=== PATIENT | male | born 1945 | race Caucasian/White ===

== ENCOUNTER → 2016-12-27 | Outpatient (CLI) | payer MEDICARE, OTHER ==
[~2016-12-27] MED LIST: ACET325T14 PO; ASPI-496 PO; ASPI-515 PO; ATOR40TA78 PO; BUPR-86 PO; CARV12.52 PO; CILO100T17 PO; CLOP75TA PO; ENAL20TA68 PO; ERGO500017 PO; FINA5TAB4 PO; GABA300C10 PO; HYDR-3138 PO; OXYC1TAB9 PO; PANT20TA3 PO; PARO10TA3 PO; POLY17PO5 PO; SENN1TAB7 PO; iron PO
[2016-12-27 12:44] LABS: HEMATOCRIT 29.5 % (39.2-51.8); HEMOGLOBIN 9.4 g/dL (13.7-18.0); WHITE BLOOD COUNT 5.4 x10^3/uL (3.4-10)
[2016-12-27 12:58] LABS: BLOOD UREA NITROGEN 50 mg/dL (7-18)
[2016-12-27 13:08] LABS: ASPARTATE AMINO TRANSFERASE 9 U/L (15-37); FERRITIN 801.7 ng/mL (26-388); TOTAL IRON BINDING CAPACITY 177 mcg/dL (250-450); TRANSFERRIN 143 mg/dL (200-360)
[2016-12-28 10:07] LABS: CREATININE URINE 57.2 mg/dL (Not Estab.)
== END | disposition home or self-care (01) ==
LOC: CFH 10:49
PROVIDERS: ATTEND Internal Medicine Cardiovascular Disease
DX: I12.9 Hypertensive chronic kidney disease with stage 1 through stage 4 chronic kidney disease, or unspecified chronic kidney disease (principal); D63.1 Anemia in chronic kidney disease; N18.4 Chronic kidney disease, stage 4 (severe); N17.9 Acute kidney failure, unspecified; E78.00 Pure hypercholesterolemia, unspecified; E03.9 Hypothyroidism, unspecified
CPT/HCPCS: 36415; 80053; 80061; 82043; 82570; 82728; 83540; 83550; 84439; 84443; 84466; 85025

== ENCOUNTER → 2017-01-30 | Outpatient (CLI) | payer MEDICARE, OTHER ==
[~2017-01-30] MED LIST changes: -HYDR-3138 PO; +HYDR-3237 PO
[2017-01-30 12:56] LABS: HEMATOCRIT 32.1 % (39.2-51.8); HEMOGLOBIN 10.5 g/dL (13.7-18.0); WHITE BLOOD COUNT 5.5 x10^3/uL (3.4-10)
== END | disposition home or self-care (01) ==
LOC: CFH 10:31
PROVIDERS: ATTEND Family Medicine
DX: D50.8 Other iron deficiency anemias (principal)
CPT/HCPCS: 36415; 85025

== ENCOUNTER → 2017-04-05 | Outpatient (CLI) | payer MEDICARE, OTHER ==
[~2017-04-05] MED LIST changes: +AMLO5TAB4 PO; +CHOL500015 PO; +FLUC100T4 PO; +LACT1CAP24 PO; +LEVO25TA2 PO; +LISI-170 PO; +MAGN400O7 PO; +SIMV10TA PO; +VANC1VIA3 PO; +ZOLP10TA PO
[2017-04-05 13:12] LABS: HEMATOCRIT 31.5 % (39.2-51.8); HEMOGLOBIN 10.3 g/dL (13.7-18.0); WHITE BLOOD COUNT 6.1 x10^3/uL (3.4-10)
[2017-04-05 13:36] LABS: ASPARTATE AMINO TRANSFERASE 14 U/L (15-37); BLOOD UREA NITROGEN 30 mg/dL (7-18)
[2017-04-08 12:23] LABS: C. DIFF TOXIN A & B Negative
[2017-04-08 12:24] LABS: 027-NAP1-BI Presumpt Negative (Negative)
== END | disposition home or self-care (01) ==
LOC: LAB 09:51
PROVIDERS: ATTEND Family Medicine
DX: A04.72 Enterocolitis due to Clostridium difficile, not specified as recurrent (principal); D63.8 Anemia in other chronic diseases classified elsewhere; N18.4 Chronic kidney disease, stage 4 (severe)
CPT/HCPCS: 36415; 80053; 85025; 87493

== ENCOUNTER → 2017-06-05 | Outpatient (CLI) | payer MEDICARE, OTHER ==
[2017-06-05 12:46] LABS: BASOPHILS # (AUTO) 0.02 x10^3/uL (0-0.1); BASOPHILS % (AUTO) 0 % (0-1); EOSINOPHILS # (AUTO) 0.21 x10^3/uL (0-0.4); EOSINOPHILS % (AUTO) 4 % (1-7); LYMPHOCYTES # (AUTO) 1.35 x10^3/uL (1-3.4); LYMPHOCYTES % (AUTO) 23 % (22-44); MD NO; MEAN CORPUSCULAR HGB CONC 32.6 g/dL (33.2-36.2); MEAN CORPUSCULAR VOLUME 91.8 fL (81-97); MEAN PLATELET VOLUME 9.5 fL (7.4-10.4); MONOCYTES # (AUTO) 0.57 x10^3/uL (0.2-0.8); MONOCYTES % (AUTO) 10 % (2-9); NEUTROPHILS # (AUTO) 3.75 x10^3/uL (1.8-6.8); NEUTROPHILS % (AUTO) 64 % (42-75); PLATELET COUNT 209 x10^3/uL (130-400); RED BLOOD COUNT 3.71 x10^6/uL (4.38-5.82); RED CELL DISTRIBUTION WIDTH 16.1 % (9.4-14.8)
[2017-06-05 12:48] LABS: CHLORIDE 112 mmol/L (98-107)
[2017-06-05 13:10] LABS: ALANINE AMINOTRANSFERASE 14 U/L (12-78); ALBUMIN 3.4 g/dL (3.4-5.0); ALKALINE PHOSPHATASE 121 U/L (45-117); ANION GAP 12 mmol/L (5-15); BILIRUBIN,TOTAL 0.5 mg/dL (0.2-1.0); CHOL/HDL RATIO 2.7; CHOLESTEROL, TOTAL 122 mg/dL (140-239); CREATININE 3.37 mg/dL (0.7-1.3); HDL CHOL % 38 % (26-37); HDL CHOLESTEROL (DIRECT) 46 mg/dL (40-60); LDL CHOLESTEROL,CALCULATED 57 mg/dL (54-169); LDL/HDL RATIO 1.2 (0.5-3.0); T4 (THYROXINE) 7.4 mcg/dL (4.5-12.1); TOTAL PROTEIN 8.2 g/dL (6.4-8.2); TRIGLYCERIDES 93 mg/dL (50-200); VLDL CHOLESTEROL 19 mg/dL (0-25)
== END | disposition home or self-care (01) ==
LOC: CFH 09:32
PROVIDERS: ATTEND Internal Medicine Cardiovascular Disease
DX: I12.9 Hypertensive chronic kidney disease with stage 1 through stage 4 chronic kidney disease, or unspecified chronic kidney disease (principal); E78.00 Pure hypercholesterolemia, unspecified; N18.9 Chronic kidney disease, unspecified; I25.2 Old myocardial infarction; I25.5 Ischemic cardiomyopathy
CPT/HCPCS: 36415; 80053; 80061; 84436; 84443; 84481; 85025

== ENCOUNTER → 2017-07-16 | Outpatient (CLI) | payer MEDICARE, OTHER ==
[2017-07-16 13:10] LABS: ALBUMIN 3.5 g/dL (3.4-5.0); ANION GAP 8 mmol/L (5-15); CALCIUM 8.9 mg/dL (8.5-10.1); CHLORIDE 116 mmol/L (98-107)
[2017-07-16 13:23] LABS: ALANINE AMINOTRANSFERASE 19 U/L (12-78); ALKALINE PHOSPHATASE 131 U/L (45-117); BILIRUBIN,TOTAL 0.4 mg/dL (0.2-1.0); CHOL/HDL RATIO 2.7; CHOLESTEROL, TOTAL 117 mg/dL (140-239); CREATININE 3.09 mg/dL (0.7-1.3); HDL CHOL % 37 % (26-37); HDL CHOLESTEROL (DIRECT) 43 mg/dL (40-60); LDL CHOLESTEROL,CALCULATED 49 mg/dL (54-169); LDL/HDL RATIO 1.1 (0.5-3.0); T4 (THYROXINE) 8.5 mcg/dL (4.5-12.1); TOTAL PROTEIN 8.5 g/dL (6.4-8.2); TRIGLYCERIDES 124 mg/dL (50-200); VLDL CHOLESTEROL 25 mg/dL (0-25)
== END | disposition home or self-care (01) ==
LOC: CFH 10:57
PROVIDERS: ATTEND Internal Medicine Cardiovascular Disease
DX: I12.9 Hypertensive chronic kidney disease with stage 1 through stage 4 chronic kidney disease, or unspecified chronic kidney disease (principal); N18.9 Chronic kidney disease, unspecified; I25.10 Atherosclerotic heart disease of native coronary artery without angina pectoris; I25.5 Ischemic cardiomyopathy; I47.2 Ventricular tachycardia; I25.2 Old myocardial infarction; N17.9 Acute kidney failure, unspecified
CPT/HCPCS: 36415; 80053; 80061; 84436; 84443; 84481

== ENCOUNTER → 2017-08-13 | Outpatient (CLI) | payer MEDICARE, OTHER ==
[~2017-08-13] MED LIST changes: +REGADENOSON 0.4 MG/5 ML SYRINGE ONE
== END | disposition home or self-care (01) ==
LOC: CFH 07:47
PROVIDERS: ATTEND Internal Medicine Cardiovascular Disease
DX: I21.09 ST elevation (STEMI) myocardial infarction involving other coronary artery of anterior wall (principal); I21.29 ST elevation (STEMI) myocardial infarction involving other sites; I10 Essential (primary) hypertension; I25.10 Atherosclerotic heart disease of native coronary artery without angina pectoris
CPT/HCPCS: 78452; 93017; A9502; J2785

== ENCOUNTER → 2017-10-18 | Outpatient (CLI) | payer MEDICARE, OTHER ==
[~2017-10-18] MED LIST changes: -REGADENOSON 0.4 MG/5 ML SYRINGE ONE
[2017-10-18 12:46] LABS: BASOPHILS # (AUTO) 0.02 x10^3/uL (0-0.1); BASOPHILS % (AUTO) 0 % (0-1); EOSINOPHILS # (AUTO) 0.21 x10^3/uL (0-0.4); EOSINOPHILS % (AUTO) 3 % (1-7); LYMPHOCYTES # (AUTO) 1.55 x10^3/uL (1-3.4); LYMPHOCYTES % (AUTO) 21 % (22-44); MD NO; MEAN CORPUSCULAR HEMOGLOBIN 30.4 pg (27.5-34.5); MEAN CORPUSCULAR HGB CONC 32.4 g/dL (33.2-36.2); MEAN CORPUSCULAR VOLUME 93.9 fL (81-97); MEAN PLATELET VOLUME 9.1 fL (7.4-10.4); MONOCYTES # (AUTO) 0.67 x10^3/uL (0.2-0.8); MONOCYTES % (AUTO) 9 % (2-9); NEUTROPHILS # (AUTO) 5.06 x10^3/uL (1.8-6.8); NEUTROPHILS % (AUTO) 67 % (42-75); PLATELET COUNT 236 x10^3/uL (130-400); RED BLOOD COUNT 3.66 x10^6/uL (4.38-5.82); RED CELL DISTRIBUTION WIDTH 14.6 % (9.4-14.8)
[2017-10-18 12:48] LABS: ALBUMIN 3.4 g/dL (3.4-5.0); ANION GAP 7 mmol/L (5-15); CALCIUM 8.1 mg/dL (8.5-10.1); CHLORIDE 109 mmol/L (98-107)
[2017-10-18 12:51] LABS: CULTURE INDICATED? YES; MICROSCOPIC INDICATED
[2017-10-18 13:00] LABS: ALANINE AMINOTRANSFERASE 14 U/L (12-78); ALKALINE PHOSPHATASE 166 U/L (45-117); BILIRUBIN,TOTAL 0.3 mg/dL (0.2-1.0); CHOL/HDL RATIO 2.7; CHOLESTEROL, TOTAL 107 mg/dL (140-239); CREATININE 3.11 mg/dL (0.7-1.3); HDL CHOL % 36 % (26-37); HDL CHOLESTEROL (DIRECT) 39 mg/dL (40-60); LDL CHOLESTEROL,CALCULATED 41 mg/dL (54-169); LDL/HDL RATIO 1.1 (0.5-3.0); TOTAL PROTEIN 7.8 g/dL (6.4-8.2); TRIGLYCERIDES 134 mg/dL (50-200); VLDL CHOLESTEROL 27 mg/dL (0-25)
== END | disposition home or self-care (01) ==
LOC: CFH 09:03
PROVIDERS: ATTEND Family Medicine
DX: D64.9 Anemia, unspecified (principal); I73.9 Peripheral vascular disease, unspecified; N18.9 Chronic kidney disease, unspecified; E03.9 Hypothyroidism, unspecified; E87.5 Hyperkalemia; R79.89 Other specified abnormal findings of blood chemistry; R82.99 Other abnormal findings in urine
CPT/HCPCS: 36415; 80053; 80061; 81001; 84443; 85025; 87077; 87086; 87106; 87186

== ENCOUNTER → 2017-11-04 | Outpatient (CLI) | payer MEDICARE, OTHER ==
[2017-11-04 12:42] LABS: BASOPHILS # (AUTO) 0.04 x10^3/uL (0-0.1); BASOPHILS % (AUTO) 1 % (0-1); EOSINOPHILS # (AUTO) 0.09 x10^3/uL (0-0.4); EOSINOPHILS % (AUTO) 1 % (1-7); LYMPHOCYTES # (AUTO) 1.52 x10^3/uL (1-3.4); LYMPHOCYTES % (AUTO) 22 % (22-44); MD NO; MEAN CORPUSCULAR HEMOGLOBIN 30.9 pg (27.5-34.5); MEAN CORPUSCULAR HGB CONC 32.6 g/dL (33.2-36.2); MEAN CORPUSCULAR VOLUME 94.7 fL (81-97); MONOCYTES # (AUTO) 0.63 x10^3/uL (0.2-0.8); MONOCYTES % (AUTO) 9 % (2-9); NEUTROPHILS # (AUTO) 4.64 x10^3/uL (1.8-6.8); NEUTROPHILS % (AUTO) 67 % (42-75); PLATELET COUNT 316 x10^3/uL (130-400); RED BLOOD COUNT 3.67 x10^6/uL (4.38-5.82); RED CELL DISTRIBUTION WIDTH 15.3 % (9.4-14.8)
== END ==
LOC: CFH 10:42
PROVIDERS: ATTEND Family Medicine
DX: D63.1 Anemia in chronic kidney disease (principal); N18.9 Chronic kidney disease, unspecified
CPT/HCPCS: 36415; 85025

== ENCOUNTER 2017-11-22 17:18 | Emergency (ER) | payer MEDICARE, OTHER ==
[~2017-11-22] VITALS: Ht 180.3 cm; Wt 64.9 kg
[~2017-11-22 17:18] MED LIST changes: +OXYC-432 PO; -OXYC1TAB9 PO
[2017-11-22 17:54] LABS: BASOPHILS # (AUTO) 0.02 x10^3/uL (0-0.1); BASOPHILS % (AUTO) 0 % (0-1); EOSINOPHILS # (AUTO) 0.26 x10^3/uL (0-0.4); EOSINOPHILS % (AUTO) 4 % (1-7); LYMPHOCYTES # (AUTO) 1.19 x10^3/uL (1-3.4); LYMPHOCYTES % (AUTO) 18 % (22-44); MD NO; MEAN CORPUSCULAR HEMOGLOBIN 31.6 pg (27.5-34.5); MEAN CORPUSCULAR HGB CONC 33.2 g/dL (33.2-36.2); MEAN CORPUSCULAR VOLUME 95.1 fL (81-97); MEAN PLATELET VOLUME 8.1 fL (7.4-10.4); MONOCYTES # (AUTO) 0.46 x10^3/uL (0.2-0.8); MONOCYTES % (AUTO) 7 % (2-9); NEUTROPHILS # (AUTO) 4.54 x10^3/uL (1.8-6.8); NEUTROPHILS % (AUTO) 70 % (42-75); PLATELET COUNT 207 x10^3/uL (130-400); RED BLOOD COUNT 2.98 x10^6/uL (4.38-5.82); RED CELL DISTRIBUTION WIDTH 15.7 % (9.4-14.8)
[2017-11-22 18:03] LABS: ALANINE AMINOTRANSFERASE 14 U/L (12-78); ALBUMIN 3.1 g/dL (3.4-5.0); ANION GAP 6 mmol/L (5-15); CALCIUM 8.4 mg/dL (8.5-10.1); CHLORIDE 112 mmol/L (98-107); CREATININE 2.91 mg/dL (0.7-1.3)
[2017-11-22 18:05] LABS: ALKALINE PHOSPHATASE 121 U/L (45-117); BILIRUBIN,TOTAL 0.3 mg/dL (0.2-1.0); TOTAL PROTEIN 7.3 g/dL (6.4-8.2)
[2017-11-22] MEDS ORDERED: SODIUM POLYSTYRENE SULFONATE ORAL SUSP PO ONE (18:30)
[2017-11-22] MEDS ORDERED: CLOP75TA52 PO (18:56)
[2017-11-22 19:54] VITALS: BP 165/72
== END 2017-11-22 19:56 | disposition home or self-care (01) ==
LOC: ED 18:20 → EDIP 18:23 → UNDOADMIN 18:23 → ED 19:56
DX: E87.5 Hyperkalemia (principal); Z87.891 Personal history of nicotine dependence; E11.21 Type 2 diabetes mellitus with diabetic nephropathy; Z99.2 Dependence on renal dialysis; Z95.1 Presence of aortocoronary bypass graft
CPT/HCPCS: 36415; 80053; 85025; 93005; 99285

== ENCOUNTER 2017-12-23 13:00 | Inpatient (IN) | payer MEDICARE, OTHER ==
[~2017-12-23] VITALS: Ht 180.3 cm; Wt 64.0 kg
[~2017-12-23 13:00] MED LIST changes: +CLOP75TA52 PO
[2017-12-30] MEDS ORDERED: DOCU-131 PO (11:13)
[2017-12-30] MEDS ORDERED: Iron PO (11:13)
[2017-12-30] MEDS ORDERED: HYDR-879 PO (11:13)
[2018-01-02] MEDS ORDERED: PAPAVERINE 30 MG/ML, 2ML ONE (08:55)
[2018-01-02] MEDS ORDERED: HEPARIN 1,000 UNITS/ML, 10ML ONE (08:55)
[2018-01-02] MEDS ORDERED: THROMBIN 20,000 UNIT VIAL TP ONE (08:55)
[2018-01-02] MEDS ORDERED: PROTAMINE SULFATE 10 MG/ML, 5ML ONE (08:55)
[2018-01-02] MEDS ORDERED: BUPIVACAINE/PF 0.5% ONE (08:56)
[2018-01-02] MEDS ORDERED: BACITRACIN 50,000 UNIT ONE (08:56)
[2018-01-02] MEDS ORDERED: EPINEPHRINE 1 MG/ML, 1ML ONE (08:56)
[2018-01-02 11:40] VITALS: BP 129/73
[2018-01-02] MEDS ORDERED: SODIUM CHLORIDE 0.9% 1,000 ML IV SCH (11:47)
[2018-01-02] MEDS ORDERED: FENTANYL PF 250 MCG/5ML ONE (13:25)
[2018-01-02] MEDS ORDERED: ROCURONIUM 10 MG/ML,10ML ONE (13:54)
[2018-01-02] MEDS ORDERED: PROPOFOL 10 MG/ML, 20ML ONE (13:54)
[2018-01-02] MEDS ORDERED: ONDANSETRON 2MG/ML, 2ML ONE (13:54)
[2018-01-02] MEDS ORDERED: CEFAZOLIN 1,000 MG ONE (13:54)
[2018-01-02] MEDS ORDERED: LABETALOL 5MG/ML, 20ML IV PRN (15:30)
[2018-01-02] MEDS ORDERED: DIPHENHYDRAMINE 50 MG/ML, 1ML IVPush PRN (15:30)
[2018-01-02] MEDS ORDERED: EPHEDRINE 50 MG/ML, 1ML IVPush PRN (15:30)
[2018-01-02] MEDS ORDERED: MIDAZOLAM 1 MG/ML, 2ML IV PRN (15:30)
[2018-01-02] MEDS ORDERED: OXYcodone 5 MG/5 ML ORAL.SOL UDC PO PRN (15:30)
[2018-01-02] MEDS ORDERED: PROMETHAZINE 12.5 MG SUPP PR PRN (15:30)
[2018-01-02] MEDS ORDERED: ACETAMINOPHEN 325 MG TABLET PO PRN (15:30)
[2018-01-02] MEDS ORDERED: PROMETHAZINE 25 MG/ML, 1ML IV PRN (15:30)
[2018-01-02] MEDS ORDERED: hydrALAzine 20 MG/ML, 1ML IV PRN (15:30)
[2018-01-02] MEDS ORDERED: ONDANSETRON ODT 8 MG PO PRN (15:30)
[2018-01-02] MEDS ORDERED: EPHEDRINE 50 MG/ML, 1ML IM PRN (15:30)
[2018-01-02] MEDS ORDERED: PROMETHAZINE 25 MG SUPP PR PRN (15:30)
[2018-01-02] MEDS ORDERED: FENTANYL PF 100 MCG/2ML ONE (15:50)
[2018-01-02] MEDS: FENTANYL PF 100 MCG/2ML IV PRN ×3 (16:00→16:20)
[2018-01-02] MEDS ORDERED: ACETAMINOPHEN 650 MG/20.3 ML UDC ONE (16:17)
[2018-01-02] MEDS ORDERED: OXYcodone 5 MG/5 ML ORAL.SOL UDC ONE (16:18)
[2018-01-02] MEDS ORDERED: morphine SULFATE 10 MG/ML, 1ML ONE (16:31)
[2018-01-02] MEDS: MORPHINE SULFATE 4 MG/ML, 1ML IVPush PRN ×4 (16:33→17:06)
[2018-01-02] MEDS ORDERED: MORPHINE SULFATE 4 MG/ML, 1ML ONE (17:04)
[2018-01-02] MEDS ORDERED: ZOLPIDEM 10MG TABLET PO PRN (18:30)
[2018-01-02] MEDS ORDERED: MORPHINE SULFATE 4 MG/ML, 1ML IV PRN (19:00)
[2018-01-02] MEDS: SODIUM CHLORIDE 0.9% 1,000 ML IV SCH (19:56)
[2018-01-02] MEDS ORDERED: PAROXETINE 20 MG TABLET ONE (20:45)
[2018-01-02] MEDS: HYDROcodone/APAP 5/325 TABLET PO PRN (20:47)
[2018-01-02 20:53] VITALS: BP 145/66
[2018-01-02] MEDS ORDERED: ATORVASTATIN 80 MG TABLET PO SCH (21:00)
[2018-01-02] MEDS ORDERED: PAROXETINE 10 MG TABLET PO SCH (21:00)
[2018-01-02] MEDS ORDERED: HYDROcodone/APAP 5/325 TABLET PO PRN (22:30)
[2018-01-02 23:41] VITALS: BP 151/73
[2018-01-03] VITALS: BP 151/73
[2018-01-03] MEDS: HYDROcodone/APAP 5/325 TABLET PO PRN ×2 (03:23→07:36)
[2018-01-03 04:01] VITALS: BP 151/71
[2018-01-03 05:47] LABS: BASOPHILS # (AUTO) 0.04 x10^3/uL (0-0.1); BASOPHILS % (AUTO) 0 % (0-1); EOSINOPHILS % (AUTO) 0 % (1-7); LYMPHOCYTES # (AUTO) 0.79 x10^3/uL (1-3.4); LYMPHOCYTES % (AUTO) 8 % (22-44); MD NO; MEAN CORPUSCULAR HGB CONC 33.3 g/dL (33.2-36.2); MEAN CORPUSCULAR VOLUME 96.1 fL (81-97); MEAN PLATELET VOLUME 8.7 fL (7.4-10.4); MONOCYTES # (AUTO) 0.51 x10^3/uL (0.2-0.8); MONOCYTES % (AUTO) 5 % (2-9); NEUTROPHILS # (AUTO) 9.23 x10^3/uL (1.8-6.8); NEUTROPHILS % (AUTO) 87 % (42-75); PLATELET COUNT 218 x10^3/uL (130-400); RED BLOOD COUNT 2.75 x10^6/uL (4.38-5.82); RED CELL DISTRIBUTION WIDTH 15.1 % (9.4-14.8)
[2018-01-03 05:53] LABS: ANION GAP 6 mmol/L (5-15); CALCIUM 7.8 mg/dL (8.5-10.1); CHLORIDE 116 mmol/L (98-107); CREATININE 2.62 mg/dL (0.7-1.3)
[2018-01-03] MEDS ORDERED: ASPIRIN 81 MG TABLET EC PO SCH (06:00)
[2018-01-03] MEDS ORDERED: LEVOTHYROXINE 75 MCG TABLET PO SCH (06:00)
[2018-01-03] MEDS ORDERED: CARVEDILOL 12.5 MG TABLET PO SCH (06:00)
[2018-01-03 06:02] VITALS: BP 153/74
[2018-01-03 06:47] VITALS: BP 156/78
[2018-01-03] MEDS ORDERED: GABAPENTIN 300 MG CAPSULE PO SCH (09:00)
[2018-01-03] MEDS ORDERED: CLOPIDOGREL 75 MG TABLET PO SCH (09:00)
[2018-01-03] MEDS ORDERED: FINASTERIDE 5 MG TABLET PO SCH (09:00)
[2018-01-03] MEDS ORDERED: DOCUSATE 100 MG CAPSULE PO SCH (09:00)
[2018-01-03] MEDS: SODIUM CHLORIDE 0.9% 1,000 ML IV SCH (09:42)
[2018-01-03 10:35] VITALS: BP 119/65
== END 2018-01-03 11:02 | disposition home or self-care (01) | DRG 253 ==
LOC: ORIP 01-02 10:45 → 4NOR 01-02 17:27 → DCLOUNGE 01-03 10:52
PROVIDERS: ADMIT Surgery Vascular Surgery; ATTEND Surgery Vascular Surgery
PROC: 04UL0KZ Supplement Left Femoral Artery with Nonautologous Tissue Substitute, Open Approach (ICD-10-PCS; 2018-01-02)
PROC: 047J0DZ Dilation of Left External Iliac Artery with Intraluminal Device, Open Approach (ICD-10-PCS; 2018-01-02)
PROC: 04CL0ZZ Extirpation of Matter from Left Femoral Artery, Open Approach (ICD-10-PCS; principal; 2018-01-02 13:30)
DX: I73.9 Peripheral vascular disease, unspecified (principal); K57.32 Diverticulitis of large intestine without perforation or abscess without bleeding; I25.10 Atherosclerotic heart disease of native coronary artery without angina pectoris; E78.5 Hyperlipidemia, unspecified; I70.90 Unspecified atherosclerosis
CPT/HCPCS: 36415; 37221; 37237; 80048; 85025; 86850; 86900; C1725; C1729; J0171; J0690; J1644; J2405; J2704; J2720; J3010; J3490; C1768; C1769; C1876; C1894; J2440; J7030

== ENCOUNTER → 2017-12-25 | Outpatient (CLI) | payer MEDICARE, OTHER ==
[~2017-12-25] MED LIST changes: +DOCU-131 PO; +HYDR-879 PO; +Iron PO
[2017-12-25 13:54] LABS: ALANINE AMINOTRANSFERASE 16 U/L (12-78); ALBUMIN 3.4 g/dL (3.4-5.0); ANION GAP 8 mmol/L (5-15); CALCIUM 8.8 mg/dL (8.5-10.1); CHLORIDE 115 mmol/L (98-107); CREATININE 3.01 mg/dL (0.7-1.3)
[2017-12-25 13:56] LABS: ALKALINE PHOSPHATASE 136 U/L (45-117); BILIRUBIN,TOTAL 0.4 mg/dL (0.2-1.0)
[2017-12-25 14:00] LABS: BASOPHILS # (AUTO) 0.01 x10^3/uL (0-0.1); BASOPHILS % (AUTO) 0 % (0-1); EOSINOPHILS # (AUTO) 0.15 x10^3/uL (0-0.4); EOSINOPHILS % (AUTO) 2 % (1-7); LYMPHOCYTES # (AUTO) 1.05 x10^3/uL (1-3.4); LYMPHOCYTES % (AUTO) 15 % (22-44); MD NO; MEAN CORPUSCULAR HGB CONC 33.1 g/dL (33.2-36.2); MEAN CORPUSCULAR VOLUME 96.7 fL (81-97); MEAN PLATELET VOLUME 8.1 fL (7.4-10.4); MONOCYTES # (AUTO) 0.49 x10^3/uL (0.2-0.8); MONOCYTES % (AUTO) 7 % (2-9); NEUTROPHILS # (AUTO) 5.44 x10^3/uL (1.8-6.8); NEUTROPHILS % (AUTO) 76 % (42-75); PLATELET COUNT 251 x10^3/uL (130-400); RED BLOOD COUNT 3.43 x10^6/uL (4.38-5.82); RED CELL DISTRIBUTION WIDTH 15.3 % (9.4-14.8)
== END | disposition home or self-care (01) ==
LOC: STAR 12:53
PROVIDERS: ATTEND Surgery Vascular Surgery
DX: Z01.818 Encounter for other preprocedural examination (principal)
CPT/HCPCS: 36415; 80053; 85025

== ENCOUNTER 2018-04-11 10:33 | Inpatient (IN) | payer MEDICARE, OTHER ==
[~2018-04-11] VITALS: Ht 180.3 cm; Wt 72.2 kg
[~2018-04-11 10:33] MED LIST changes: +HYDR-3622 PO; -HYDR-879 PO; -SENN1TAB7 PO; +SENN1TAB8 PO
[2018-04-11] MEDS ORDERED: NALOXONE 0.4 MG/ML, 1ML ONE (10:36)
[2018-04-11] MEDS ORDERED: NALOXONE 0.4 MG/ML, 1ML IVPush ONE ×2 (11:00→11:30)
[2018-04-11] MEDS ORDERED: SODIUM CHLORIDE 0.9% 1,000ML IVBOLUS ONE ×2 (11:00→12:00)
[2018-04-11 11:05] LABS: BASOPHILS # (AUTO) 0.02 x10^3/uL (0-0.1); BASOPHILS % (AUTO) 0 % (0-1); EOSINOPHILS % (AUTO) 0 % (1-7); LYMPHOCYTES # (AUTO) 0.56 x10^3/uL (1-3.4); LYMPHOCYTES % (AUTO) 4 % (22-44); MD NO; MEAN CORPUSCULAR HEMOGLOBIN 30.6 pg (27.5-34.5); MEAN CORPUSCULAR HGB CONC 32.7 g/dL (33.2-36.2); MEAN CORPUSCULAR VOLUME 93.5 fL (81-97); MEAN PLATELET VOLUME 8.1 fL (7.4-10.4); MONOCYTES # (AUTO) 0.49 x10^3/uL (0.2-0.8); MONOCYTES % (AUTO) 4 % (2-9); NEUTROPHILS # (AUTO) 12.45 x10^3/uL (1.8-6.8); NEUTROPHILS % (AUTO) 92 % (42-75); PLATELET COUNT 206 x10^3/uL (130-400); RED CELL DISTRIBUTION WIDTH 15.4 % (9.4-14.8)
[2018-04-11 11:07] LABS: O2 FLOW 14 L/min
[2018-04-11 11:15] LABS: INTERNATIONAL NORMALIZED RATIO 1.3 (0.93-1.1); PROTHROMBIN TIME 13.6 Seconds (9.6-11.5)
[2018-04-11] MEDS ORDERED: TIOT18CA INH (11:16)
[2018-04-11] MEDS ORDERED: POLY17PO5 PO (11:16)
[2018-04-11] MEDS ORDERED: HYDR-3341 PO (11:16)
[2018-04-11] MEDS ORDERED: CHOL100012 PO (11:16)
[2018-04-11] MEDS ORDERED: SODIUM BICARBONATE PO (11:16)
[2018-04-11] MEDS ORDERED: MAGN400O7 PO (11:16)
[2018-04-11] MEDS ORDERED: IRON PO (11:16)
[2018-04-11] MEDS ORDERED: OXYC-307 PO (11:16)
[2018-04-11] MEDS ORDERED: TAMS-11 PO (11:16)
[2018-04-11 11:19] LABS: ALANINE AMINOTRANSFERASE 89 U/L (12-78); ALBUMIN 2.3 g/dL (3.4-5.0); ANION GAP 6 mmol/L (5-15); CALCIUM 6.9 mg/dL (8.5-10.1); CHLORIDE 107 mmol/L (98-107)
[2018-04-11 11:23] LABS: ALKALINE PHOSPHATASE 117 U/L (45-117); BILIRUBIN,TOTAL 0.7 mg/dL (0.2-1.0); TOTAL PROTEIN 5.9 g/dL (6.4-8.2); TROPONIN I 0.099 ng/mL (0.000-0.045)
[2018-04-11] MEDS ORDERED: PIPERACILLIN/TAZO/PMX 3.375GM 50 ML ONE (11:38)
[2018-04-11] MEDS ORDERED: ALBUTEROL SULFATE 2.5 MG/3 ML ONE (11:44)
[2018-04-11] MEDS ORDERED: NALOXONE IV SCH ×2 (12:00→13:00)
[2018-04-11] MEDS ORDERED: DEXTROSE 50%, 50ML SYRINGE IVPush ONE (12:00)
[2018-04-11] MEDS ORDERED: INSULIN REGULAR 100 UNITS/ML, 3ML VIAL IVPush ONE (12:00)
[2018-04-11] MEDS ORDERED: VANCOMYCIN PER PHARMACY IV ONE (12:00)
[2018-04-11] MEDS ORDERED: SODIUM CHLORIDE 0.9% IV SCH ×2 (12:00→13:00)
[2018-04-11] MEDS ORDERED: ALBUTEROL SULFATE 2.5MG/0.5ML NPPB ONE (12:00)
[2018-04-11] MEDS ORDERED: PIPERACILLIN/TAZO/PMX 3.375GM 50 ML IV ONE (12:00)
[2018-04-11] MEDS ORDERED: SODIUM BICARB 8.4%, 50ML SYRINGE IVPush ONE ×2 (12:00→13:30)
[2018-04-11] MEDS ORDERED: PHARMACOKINETIC CONSULTATION MC ONE (12:30)
[2018-04-11] MEDS ORDERED: SODIUM CHLORIDE 0.9% 1,000 ML IV SCH (12:34)
[2018-04-11] MEDS ORDERED: LABETALOL 5MG/ML, 20ML IVPush PRN (13:00)
[2018-04-11] MEDS ORDERED: DOCUSATE 100 MG CAPSULE PO PRN (13:00)
[2018-04-11] MEDS ORDERED: POLYETHYLENE GLYCOL 17 GM PACKET PO PRN (13:00)
[2018-04-11] MEDS ORDERED: BISACODYL 10 MG SUPP PR PRN (13:00)
[2018-04-11] MEDS ORDERED: LIDODERM 5% PATCH TD PRN (13:00)
[2018-04-11] MEDS ORDERED: hydrALAzine 20 MG/ML, 1ML IVPush PRN (13:00)
[2018-04-11] MEDS ORDERED: VANCOMYCIN 1,200 MG in SODIUM CHLORIDE 0.9% 250 ML IV ONE (13:00)
[2018-04-11] MEDS ORDERED: ONDANSETRON 2MG/ML, 2ML IVPush PRN (13:00)
[2018-04-11] MEDS ORDERED: DEXTROSE 50%, 50ML SYRINGE ONE (13:08)
[2018-04-11] MEDS ORDERED: SODIUM BICARB 8.4%, 50ML SYRINGE ONE (13:08)
[2018-04-11] MEDS ORDERED: INSULIN REGULAR 100 UNITS/ML, 3ML VIAL ONE (13:09)
[2018-04-11] MEDS ORDERED: CALCIUM GLUCONATE 4.6 MEQ in SODIUM CHLORIDE 0.9% 50 ML IV ONE (13:30)
[2018-04-11] MEDS ORDERED: SODIUM POLYSTYRENE SULFONATE ORAL SUSP PO SCH (13:30)
[2018-04-11 13:53] LABS: ANION GAP 5 mmol/L (5-15); CALCIUM 6.6 mg/dL (8.5-10.1); CHLORIDE 108 mmol/L (98-107); CREATININE 3.72 mg/dL (0.7-1.3)
[2018-04-11 14:12] VITALS: BP 97/47
[2018-04-11] MEDS ORDERED: DARBEPOETIN 60 MCG/ML SQ SCH (15:00)
[2018-04-11] MEDS: AMPICILLIN/SULBACTAM 3 GM in SODIUM CHLORIDE 0.9% 100 ML IV SCH ×2 (15:10→19:00)
[2018-04-11] MEDS: PANTOPRAZOLE 40 MG IV IVPush SCH (15:10)
[2018-04-11] MEDS: HEPARIN 5,000 UNITS/ML, 1ML SQ SCH ×2 (15:10→20:12)
[2018-04-11] MEDS: ASPIRIN 81 MG TABLET CHEW PO SCH (15:36)
[2018-04-11] MEDS: CLOPIDOGREL 75 MG TABLET PO SCH (15:36)
[2018-04-11 18:17] LABS: MICROSCOPIC AUTO
[2018-04-11 18:18] LABS: CULTURE INDICATED? YES
[2018-04-11] MEDS: CARVEDILOL 12.5 MG TABLET PO SCH (20:13)
[2018-04-11 20:28] LABS: CALCIUM 7.1 mg/dL (8.5-10.1)
[2018-04-11 20:33] LABS: ANION GAP 6 mmol/L (5-15); CALCIUM 6.7 mg/dL (8.5-10.1); CHLORIDE 111 mmol/L (98-107); CREATININE 3.37 mg/dL (0.7-1.3)
[2018-04-11] MEDS ORDERED: HEPARIN 25,000 UNITS/500ML PMX 500 ML IV PRN ×2 (22:30→23:00)
[2018-04-11] MEDS: ACETAMINOPHEN 325 MG TABLET PO PRN (22:46)
[2018-04-11] MEDS: SODIUM CHLORIDE 0.9% 1,000 ML IV SCH (22:49)
[2018-04-11] MEDS ORDERED: HEPARIN 5,000 UNITS/ML, 1ML IV ONE (23:00)
[2018-04-12] MEDS: AMPICILLIN/SULBACTAM 3 GM in SODIUM CHLORIDE 0.9% 100 ML IV SCH ×4 (01:11→18:42)
[2018-04-12 02:16] LABS: BASOPHILS # (AUTO) 0.02 x10^3/uL (0-0.1); BASOPHILS % (AUTO) 0 % (0-1); EOSINOPHILS # (AUTO) 0.01 x10^3/uL (0-0.4); EOSINOPHILS % (AUTO) 0 % (1-7); LYMPHOCYTES # (AUTO) 0.94 x10^3/uL (1-3.4); LYMPHOCYTES % (AUTO) 6 % (22-44); MD NO; MEAN CORPUSCULAR HGB CONC 33.1 g/dL (33.2-36.2); MEAN CORPUSCULAR VOLUME 93.8 fL (81-97); MEAN PLATELET VOLUME 8.2 fL (7.4-10.4); MONOCYTES # (AUTO) 0.49 x10^3/uL (0.2-0.8); MONOCYTES % (AUTO) 3 % (2-9); NEUTROPHILS # (AUTO) 14.09 x10^3/uL (1.8-6.8); NEUTROPHILS % (AUTO) 91 % (42-75); PLATELET COUNT 163 x10^3/uL (130-400); RED CELL DISTRIBUTION WIDTH 15.6 % (9.4-14.8)
[2018-04-12 02:23] LABS: ALANINE AMINOTRANSFERASE 203 U/L (12-78); ALBUMIN 1.9 g/dL (3.4-5.0); ANION GAP 10 mmol/L (5-15); CHLORIDE 112 mmol/L (98-107); CREATININE 3.19 mg/dL (0.7-1.3)
[2018-04-12 02:37] LABS: ALKALINE PHOSPHATASE 91 U/L (45-117); BILIRUBIN,TOTAL 0.4 mg/dL (0.2-1.0); CREATINE KINASE, TOTAL 4661 U/L (39-308); TOTAL PROTEIN 5.5 g/dL (6.4-8.2)
[2018-04-12] MEDS: ACETAMINOPHEN 325 MG TABLET PO PRN (03:25)
[2018-04-12] MEDS: SODIUM CHLORIDE 0.9% 1,000 ML IV SCH ×3 (05:46→23:28)
[2018-04-12] MEDS: LEVOTHYROXINE 75 MCG TABLET PO SCH (05:50)
[2018-04-12] MEDS: PANTOPRAZOLE 40 MG IV IVPush SCH (08:50)
[2018-04-12] MEDS: CHOLECALCIFEROL 1,000 UNIT TABLET PO SCH (08:50)
[2018-04-12] MEDS: CLOPIDOGREL 75 MG TABLET PO SCH (08:50)
[2018-04-12] MEDS: ASPIRIN 81 MG TABLET CHEW PO SCH (08:51)
[2018-04-12] MEDS: FINASTERIDE 5 MG TABLET PO SCH (08:51)
[2018-04-12] MEDS: CARVEDILOL 12.5 MG TABLET PO SCH ×2 (08:51→22:05)
[2018-04-12] MEDS: TAMSULOSIN 0.4 MG CAP.ER.24H PO SCH (08:52)
[2018-04-12] MEDS: MAGNESIUM HYDROXIDE 8%, 30ML UDC PO PRN ×2 (08:55→08:56)
[2018-04-12] MEDS: PAROXETINE 10 MG TABLET PO SCH (08:56)
[2018-04-12] MEDS: POLYETHYLENE GLYCOL 17 GM PACKET PO SCH (09:00)
[2018-04-12] MEDS ORDERED: ASPIRIN 81 MG TABLET CHEW PO SCH (09:00)
[2018-04-12] MEDS: TEMPLATE NON-FORMULARY MED. (Tiotropium Bromide** (Spiriva**) 18 MCG) INH SCH (09:00)
[2018-04-12] MEDS ORDERED: CLOPIDOGREL 75 MG TABLET PO SCH (09:00)
[2018-04-12] MEDS: HEPARIN 5,000 UNITS/ML, 1ML IV PRN ×2 (09:11→17:04)
[2018-04-12 15:58] VITALS: BP 126/64
[2018-04-12 19:41] VITALS: BP 136/61
[2018-04-12] MEDS: GABAPENTIN 100 MG CAPSULE PO PRN (22:05)
[2018-04-13 00:01] VITALS: BP 143/67
[2018-04-13] MEDS: AMPICILLIN/SULBACTAM 3 GM in SODIUM CHLORIDE 0.9% 100 ML IV SCH ×4 (00:07→19:19)
[2018-04-13 05:28] LABS: BASOPHILS % (AUTO) 0 % (0-1); EOSINOPHILS # (AUTO) 0.13 x10^3/uL (0-0.4); EOSINOPHILS % (AUTO) 1 % (1-7); LYMPHOCYTES # (AUTO) 0.75 x10^3/uL (1-3.4); LYMPHOCYTES % (AUTO) 6 % (22-44); MD NO; MEAN CORPUSCULAR HEMOGLOBIN 31.3 pg (27.5-34.5); MEAN CORPUSCULAR HGB CONC 33.4 g/dL (33.2-36.2); MEAN CORPUSCULAR VOLUME 93.7 fL (81-97); MEAN PLATELET VOLUME 8.7 fL (7.4-10.4); MONOCYTES # (AUTO) 0.56 x10^3/uL (0.2-0.8); MONOCYTES % (AUTO) 4 % (2-9); NEUTROPHILS # (AUTO) 11.44 x10^3/uL (1.8-6.8); NEUTROPHILS % (AUTO) 89 % (42-75); PLATELET COUNT 162 x10^3/uL (130-400); RED BLOOD COUNT 2.54 x10^6/uL (4.38-5.82); RED CELL DISTRIBUTION WIDTH 15.8 % (9.4-14.8)
[2018-04-13 05:35] LABS: ALBUMIN 1.9 g/dL (3.4-5.0); ANION GAP 9 mmol/L (5-15); CALCIUM 7.4 mg/dL (8.5-10.1); CHLORIDE 114 mmol/L (98-107)
[2018-04-13] MEDS: LEVOTHYROXINE 75 MCG TABLET PO SCH (05:35)
[2018-04-13] MEDS: GABAPENTIN 100 MG CAPSULE PO PRN ×2 (05:40→12:23)
[2018-04-13 05:52] LABS: ALANINE AMINOTRANSFERASE 202 U/L (12-78); ALKALINE PHOSPHATASE 89 U/L (45-117); BILIRUBIN,TOTAL 0.3 mg/dL (0.2-1.0); CREATINE KINASE, TOTAL 1821 U/L (39-308); CREATININE 2.53 mg/dL (0.7-1.3); TOTAL PROTEIN 5.6 g/dL (6.4-8.2)
[2018-04-13 08:12] VITALS: BP 161/71
[2018-04-13] MEDS ORDERED: PAROXETINE 20 MG TABLET ONE (08:19)
[2018-04-13] MEDS: ASPIRIN 81 MG TABLET CHEW PO SCH (08:29)
[2018-04-13] MEDS: TAMSULOSIN 0.4 MG CAP.ER.24H PO SCH (08:30)
[2018-04-13] MEDS: CHOLECALCIFEROL 1,000 UNIT TABLET PO SCH (08:30)
[2018-04-13] MEDS: CLOPIDOGREL 75 MG TABLET PO SCH (08:31)
[2018-04-13] MEDS: FINASTERIDE 5 MG TABLET PO SCH (08:31)
[2018-04-13] MEDS: CARVEDILOL 12.5 MG TABLET PO SCH ×2 (08:31→21:38)
[2018-04-13] MEDS: PANTOPRAZOLE 40 MG IV IVPush SCH (08:33)
[2018-04-13] MEDS: PAROXETINE 10 MG TABLET PO SCH (08:33)
[2018-04-13] MEDS: POLYETHYLENE GLYCOL 17 GM PACKET PO SCH (08:37)
[2018-04-13] MEDS: TEMPLATE NON-FORMULARY MED. (Tiotropium Bromide** (Spiriva**) 18 MCG) INH SCH (09:00)
[2018-04-13] MEDS ORDERED: SODIUM CHLORIDE 0.9% 1,000 ML IV SCH (12:34)
[2018-04-13 16:05] VITALS: BP 154/63
[2018-04-13] MEDS: GABAPENTIN 300 MG CAPSULE PO PRN (16:43)
[2018-04-13 19:57] VITALS: BP 143/56
[2018-04-14] MEDS: AMPICILLIN/SULBACTAM 3 GM in SODIUM CHLORIDE 0.9% 100 ML IV SCH ×4 (00:24→18:13)
[2018-04-14 00:35] VITALS: BP 155/54
[2018-04-14 04:53] LABS: BASOPHILS % (AUTO) 0 % (0-1); EOSINOPHILS # (AUTO) 0.17 x10^3/uL (0-0.4); EOSINOPHILS % (AUTO) 1 % (1-7); LYMPHOCYTES # (AUTO) 0.81 x10^3/uL (1-3.4); LYMPHOCYTES % (AUTO) 7 % (22-44); MD NO; MEAN CORPUSCULAR HEMOGLOBIN 31.9 pg (27.5-34.5); MEAN CORPUSCULAR VOLUME 93.8 fL (81-97); MEAN PLATELET VOLUME 8.1 fL (7.4-10.4); MONOCYTES # (AUTO) 0.49 x10^3/uL (0.2-0.8); MONOCYTES % (AUTO) 4 % (2-9); NEUTROPHILS % (AUTO) 88 % (42-75); PLATELET COUNT 166 x10^3/uL (130-400); RED BLOOD COUNT 2.58 x10^6/uL (4.38-5.82); RED CELL DISTRIBUTION WIDTH 15.5 % (9.4-14.8)
[2018-04-14] MEDS: LEVOTHYROXINE 75 MCG TABLET PO SCH (04:55)
[2018-04-14 05:03] LABS: CHLORIDE 115 mmol/L (98-107)
[2018-04-14 05:10] LABS: ALANINE AMINOTRANSFERASE 262 U/L (12-78); ALKALINE PHOSPHATASE 89 U/L (45-117); ANION GAP 8 mmol/L (5-15); BILIRUBIN,TOTAL 0.3 mg/dL (0.2-1.0); CALCIUM 7.6 mg/dL (8.5-10.1); CREATININE 2.22 mg/dL (0.7-1.3); TOTAL PROTEIN 5.7 g/dL (6.4-8.2)
[2018-04-14 07:08] VITALS: BP 158/72
[2018-04-14] MEDS: TEMPLATE NON-FORMULARY MED. (Tiotropium Bromide** (Spiriva**) 18 MCG) INH SCH (07:46)
[2018-04-14] MEDS ORDERED: REGADENOSON 0.4 MG/5 ML SYRINGE ONE (10:33)
[2018-04-14] MEDS ORDERED: FLUCONAZOLE 200 MG/100 ML 100 ML IV SCH (12:00)
[2018-04-14 12:34] VITALS: BP 151/81
[2018-04-14] MEDS ORDERED: SODIUM CHLORIDE 0.9% 1,000 ML IV SCH (12:34)
[2018-04-14] MEDS ORDERED: LIDODERM 5% PATCH TD PRN (13:00)
[2018-04-14] MEDS: GABAPENTIN 300 MG CAPSULE PO PRN (14:49)
[2018-04-14] MEDS: PAROXETINE 10 MG TABLET PO SCH (14:49)
[2018-04-14] MEDS: CARVEDILOL 12.5 MG TABLET PO SCH ×2 (14:49→20:38)
[2018-04-14] MEDS: PANTOPROZOLE 40MG TABLET PO SCH (14:49)
[2018-04-14] MEDS: TAMSULOSIN 0.4 MG CAP.ER.24H PO SCH (14:49)
[2018-04-14] MEDS: FINASTERIDE 5 MG TABLET PO SCH (14:49)
[2018-04-14] MEDS: CHOLECALCIFEROL 1,000 UNIT TABLET PO SCH (14:49)
[2018-04-14] MEDS: CLOPIDOGREL 75 MG TABLET PO SCH (14:50)
[2018-04-14] MEDS: ASPIRIN 81 MG TABLET CHEW PO SCH (14:50)
[2018-04-14] MEDS: POLYETHYLENE GLYCOL 17 GM PACKET PO SCH ×2 (14:52→16:51)
[2018-04-14 20:01] VITALS: BP 154/62
[2018-04-15] MEDS: AMPICILLIN/SULBACTAM 3 GM in SODIUM CHLORIDE 0.9% 100 ML IV SCH ×3 (01:46→13:04)
[2018-04-15 01:56] VITALS: BP 155/68
[2018-04-15 05:01] LABS: BASOPHILS # (AUTO) 0.02 x10^3/uL (0-0.1); BASOPHILS % (AUTO) 0 % (0-1); EOSINOPHILS # (AUTO) 0.09 x10^3/uL (0-0.4); EOSINOPHILS % (AUTO) 1 % (1-7); LYMPHOCYTES % (AUTO) 8 % (22-44); MD NO; MEAN CORPUSCULAR HEMOGLOBIN 31.2 pg (27.5-34.5); MEAN CORPUSCULAR HGB CONC 33.5 g/dL (33.2-36.2); MEAN CORPUSCULAR VOLUME 93.3 fL (81-97); MEAN PLATELET VOLUME 8.1 fL (7.4-10.4); MONOCYTES # (AUTO) 0.57 x10^3/uL (0.2-0.8); MONOCYTES % (AUTO) 6 % (2-9); NEUTROPHILS # (AUTO) 7.97 x10^3/uL (1.8-6.8); NEUTROPHILS % (AUTO) 84 % (42-75); PLATELET COUNT 174 x10^3/uL (130-400); RED BLOOD COUNT 2.56 x10^6/uL (4.38-5.82); RED CELL DISTRIBUTION WIDTH 15.6 % (9.4-14.8)
[2018-04-15 05:11] LABS: ALANINE AMINOTRANSFERASE 341 U/L (12-78); ALBUMIN 1.9 g/dL (3.4-5.0); ANION GAP 11 mmol/L (5-15); CALCIUM 7.7 mg/dL (8.5-10.1); CHLORIDE 115 mmol/L (98-107); CREATININE 2.15 mg/dL (0.7-1.3)
[2018-04-15 05:13] LABS: ALKALINE PHOSPHATASE 93 U/L (45-117); BILIRUBIN,TOTAL 0.4 mg/dL (0.2-1.0); TOTAL PROTEIN 5.9 g/dL (6.4-8.2)
[2018-04-15] MEDS: LEVOTHYROXINE 75 MCG TABLET PO SCH (06:08)
[2018-04-15 07:57] VITALS: BP 163/74
[2018-04-15] MEDS: CHOLECALCIFEROL 1,000 UNIT TABLET PO SCH (08:21)
[2018-04-15] MEDS: FINASTERIDE 5 MG TABLET PO SCH (08:21)
[2018-04-15] MEDS: PAROXETINE 10 MG TABLET PO SCH (08:21)
[2018-04-15] MEDS: TAMSULOSIN 0.4 MG CAP.ER.24H PO SCH (08:21)
[2018-04-15] MEDS: ASPIRIN 81 MG TABLET CHEW PO SCH (08:21)
[2018-04-15] MEDS: CLOPIDOGREL 75 MG TABLET PO SCH (08:21)
[2018-04-15] MEDS: CARVEDILOL 12.5 MG TABLET PO SCH (08:21)
[2018-04-15] MEDS: PANTOPROZOLE 40MG TABLET PO SCH (08:21)
[2018-04-15] MEDS: TEMPLATE NON-FORMULARY MED. (Tiotropium Bromide** (Spiriva**) 18 MCG) INH SCH (08:22)
[2018-04-15] MEDS ORDERED: AMOX1TAB61 PO (13:01)
[2018-04-15 14:00] VITALS: BP 148/97
[2018-04-15] MEDS ORDERED: ATOR20TA37 PO (14:07)
== END 2018-04-15 16:06 | disposition home or self-care (01) | DRG 917 ==
LOC: ED 12:33 → EDIP 12:34 → ED 12:55 → CCU 13:45 → 5SO 04-12 15:10
PROVIDERS: ADMIT Hospitalist; ATTEND Hospitalist
DX: T40.2X1A Poisoning by other opioids, accidental (unintentional), initial encounter (principal); A41.9 Sepsis, unspecified organism; G92 Toxic encephalopathy; I21.4 Non-ST elevation (NSTEMI) myocardial infarction; J69.0 Pneumonitis due to inhalation of food and vomit; J96.91 Respiratory failure, unspecified with hypoxia; E46 Unspecified protein-calorie malnutrition; I13.0 Hypertensive heart and chronic kidney disease with heart failure and stage 1 through stage 4 chronic kidney disease, or unspecified chronic kidney disease; N17.9 Acute kidney failure, unspecified; N18.4 Chronic kidney disease, stage 4 (severe); I42.9 Cardiomyopathy, unspecified; N25.81 Secondary hyperparathyroidism of renal origin; Z87.891 Personal history of nicotine dependence; G89.29 Other chronic pain; I73.9 Peripheral vascular disease, unspecified; Z99.2 Dependence on renal dialysis; I50.9 Heart failure, unspecified; D64.9 Anemia, unspecified; E87.5 Hyperkalemia; E83.51 Hypocalcemia; I25.10 Atherosclerotic heart disease of native coronary artery without angina pectoris; Z95.1 Presence of aortocoronary bypass graft; Y92.89 Other specified places as the place of occurrence of the external cause; E03.9 Hypothyroidism, unspecified; E78.5 Hyperlipidemia, unspecified; T39.1X1A Poisoning by 4-Aminophenol derivatives, accidental (unintentional), initial encounter; Z90.49 Acquired absence of other specified parts of digestive tract; Z93.3 Colostomy status; Z95.5 Presence of coronary angioplasty implant and graft; Z79.82 Long term (current) use of aspirin; Z79.899 Other long term (current) drug therapy; Z68.22 Body mass index [BMI] 22.0-22.9, adult
CPT/HCPCS: 36415; 36600; 71045; 76770; 78452; 80048; 80053; 81001; 82306; 82310; 82330; 82436; 82550; 82570; 82728; 82803; 83540; 83550; 83605; 83690; 83735; 83935; 83970; 84100; 84133; 84145; 84156; 84300; 84484; 84550; 85025; 85520; 85610; 87040; 87081; 87086; 87106; 87205; 93005; 93017; 93306; 94640; 96361; 96374; 96375; 99291; G0378; J0295; J0610; J0881; J1644; J2310; J2543; J2785; J3370; J7611; A9502; C9113; C9898; J1450; J7030; J7050

== ENCOUNTER → 2018-04-25 | Outpatient (CLI) | payer MEDICARE, OTHER ==
[~2018-04-25] MED LIST changes: +AMOX1TAB61 PO; +ATOR20TA37 PO; +CHOL100012 PO; +HYDR-3341 PO; +IRON PO; +OXYC-307 PO; +SODIUM BICARBONATE PO; +TAMS-11 PO; +TIOT18CA INH
[2018-04-25 13:04] LABS: BASOPHILS # (AUTO) 0.02 x10^3/uL (0-0.1); BASOPHILS % (AUTO) 0 % (0-1); EOSINOPHILS # (AUTO) 0.13 x10^3/uL (0-0.4); EOSINOPHILS % (AUTO) 2 % (1-7); LYMPHOCYTES # (AUTO) 1.07 x10^3/uL (1-3.4); LYMPHOCYTES % (AUTO) 18 % (22-44); MD NO; MEAN CORPUSCULAR HEMOGLOBIN 30.7 pg (27.5-34.5); MEAN CORPUSCULAR HGB CONC 32.8 g/dL (33.2-36.2); MEAN CORPUSCULAR VOLUME 93.7 fL (81-97); MEAN PLATELET VOLUME 8.4 fL (7.4-10.4); MONOCYTES # (AUTO) 0.59 x10^3/uL (0.2-0.8); MONOCYTES % (AUTO) 10 % (2-9); NEUTROPHILS % (AUTO) 70 % (42-75); PLATELET COUNT 330 x10^3/uL (130-400); RED BLOOD COUNT 3.24 x10^6/uL (4.38-5.82); RED CELL DISTRIBUTION WIDTH 16.1 % (9.4-14.8)
[2018-04-25 13:14] LABS: ALANINE AMINOTRANSFERASE 44 U/L (12-78); ALBUMIN 2.9 g/dL (3.4-5.0); ANION GAP 9 mmol/L (5-15); CALCIUM 8.3 mg/dL (8.5-10.1); CHLORIDE 110 mmol/L (98-107); CHOLESTEROL, TOTAL 120 mg/dL (140-239); CREATININE 2.44 mg/dL (0.7-1.3)
[2018-04-25 13:24] LABS: ALKALINE PHOSPHATASE 140 U/L (45-117); BILIRUBIN,TOTAL 0.5 mg/dL (0.2-1.0); CHOL/HDL RATIO 4.1; HDL CHOL % 24 % (26-37); HDL CHOLESTEROL (DIRECT) 29 mg/dL (40-60); LDL CHOLESTEROL,CALCULATED 64 mg/dL (54-169); LDL/HDL RATIO 2.2 (0.5-3.0); TRIGLYCERIDES 134 mg/dL (50-200); VLDL CHOLESTEROL 27 mg/dL (0-25)
== END | disposition home or self-care (01) ==
LOC: CFH 09:38
PROVIDERS: ATTEND Family Medicine
DX: I73.9 Peripheral vascular disease, unspecified (principal); K75.0 Abscess of liver; D64.9 Anemia, unspecified; D63.1 Anemia in chronic kidney disease; K90.0 Celiac disease; E78.5 Hyperlipidemia, unspecified
CPT/HCPCS: 36415; 80053; 80061; 84443; 85025

== ENCOUNTER → 2018-05-09 | Outpatient (CLI) | payer MEDICARE, OTHER | END | disposition home or self-care (01) | LOC: CFH 10:42 | PROVIDERS: ATTEND Family Medicine | DX: J69.0 Pneumonitis due to inhalation of food and vomit (principal) | CPT/HCPCS: 71046 ==

== ENCOUNTER 2018-06-16 12:02 | Emergency (ER) | payer MEDICARE, OTHER ==
[~2018-06-16] VITALS: Ht 180.3 cm; Wt 57.4 kg
--- NOTE | 2018-06-16 12:57 | NUR ---
Pt amb to rm 15 from lobby
[2018-06-16] MEDS ORDERED: FAMOTIDINE 20 MG/2 ML IVP ONE (13:30)
[2018-06-16] MEDS ORDERED: SODIUM CHLORIDE 0.9% 1,000ML IVBOLUS ONE (13:30)
[2018-06-16] MEDS ORDERED: ONDANSETRON 2MG/ML, 2ML IVPush ONE (13:30)
[2018-06-16] MEDS ORDERED: ONDANSETRON 2MG/ML, 2ML ONE (13:37)
[2018-06-16] MEDS ORDERED: FAMOTIDINE 20 MG/2 ML ONE (13:37)
[2018-06-16] MEDS ORDERED: MORPHINE SULFATE 4 MG/ML, 1ML ONE ×2 (13:37→15:43)
[2018-06-16] MEDS: MORPHINE SULFATE 4 MG/ML, 1ML IVPush PRN ×2 (13:46→15:49)
[2018-06-16 13:58] LABS: BASOPHILS # (AUTO) 0.02 x10^3/uL (0-0.1); BASOPHILS % (AUTO) 0 % (0-1); EOSINOPHILS % (AUTO) 0 % (1-7); LYMPHOCYTES # (AUTO) 1.13 x10^3/uL (1-3.4); LYMPHOCYTES % (AUTO) 14 % (22-44); MD NO; MEAN CORPUSCULAR HEMOGLOBIN 29.5 pg (27.5-34.5); MEAN CORPUSCULAR HGB CONC 32.2 g/dL (33.2-36.2); MEAN CORPUSCULAR VOLUME 91.7 fL (81-97); MEAN PLATELET VOLUME 8.2 fL (7.4-10.4); MONOCYTES # (AUTO) 0.35 x10^3/uL (0.2-0.8); MONOCYTES % (AUTO) 5 % (2-9); NEUTROPHILS # (AUTO) 6.35 x10^3/uL (1.8-6.8); NEUTROPHILS % (AUTO) 81 % (42-75); PLATELET COUNT 316 x10^3/uL (130-400); RED BLOOD COUNT 3.94 x10^6/uL (4.38-5.82)
[2018-06-16 14:06] LABS: ALBUMIN 3.5 g/dL (3.4-5.0); ANION GAP 9 mmol/L (5-15); CALCIUM 9.5 mg/dL (8.5-10.1); CHLORIDE 110 mmol/L (98-107)
[2018-06-16 14:15] LABS: ALANINE AMINOTRANSFERASE 17 U/L (12-78); ALKALINE PHOSPHATASE 146 U/L (45-117); BILIRUBIN,TOTAL 0.7 mg/dL (0.2-1.0); CREATININE 2.21 mg/dL (0.7-1.3); TOTAL PROTEIN 8.4 g/dL (6.4-8.2); TROPONIN I < 0.015 ng/mL (0.000-0.045)
[2018-06-16 17:42] VITALS: BP 149/71
--- NOTE | 2018-06-16 17:42 | NUR ---
PT IN BED. AT BEDSIDE. AWAITING RESULTS AT THIS TIME.
[2018-06-16 18:09] LABS: CLOSTRIDIUM DIFFICILE ANTIGEN NEGATIVE; CLOSTRIDIUM DIFFICILE TOXIN NEGATIVE (Negative)
[2018-06-23] MEDS ORDERED: AMLO-150 PO (11:44)
[2018-06-23] MEDS ORDERED: ONDA4TAB13 PO (11:44)
[2018-06-23] MEDS ORDERED: ACET325T14 PO (11:44)
[2018-06-23] MEDS ORDERED: PANT40TA5 PO (11:44)
== END 2018-06-16 18:45 | disposition home or self-care (01) ==
LOC: ED 17:08
DX: I71.4 Abdominal aortic aneurysm, without rupture (principal); R19.7 Diarrhea, unspecified; E78.00 Pure hypercholesterolemia, unspecified; I10 Essential (primary) hypertension; Z87.891 Personal history of nicotine dependence
CPT/HCPCS: 36415; 71045; 74176; 80053; 83605; 83690; 84484; 85025; 87324; 93005; 96361; 96374; 96375; 96376; 99284; J2405; J3490; J7030

== ENCOUNTER → 2018-07-09 | Outpatient (CLI) | payer MEDICARE, OTHER ==
[~2018-07-09] MED LIST changes: +AMLO-150 PO; +ONDA4TAB13 PO; +PANT40TA5 PO
[2018-07-09 14:16] LABS: CREATININE 2.42 mg/dL (0.7-1.3)
== END | disposition home or self-care (01) ==
LOC: RAD 13:28
PROVIDERS: ATTEND Surgery
DX: I71.2 Thoracic aortic aneurysm, without rupture (principal); I25.10 Atherosclerotic heart disease of native coronary artery without angina pectoris
CPT/HCPCS: 36415; 71250; 82565